=== PATIENT | female | born 1985 | race Caucasian/White ===

== ENCOUNTER 2016-12-01 12:35 | Outpatient (CLI) | payer MEDICAID | END 2016-12-01 13:45 | disposition home or self-care (01) | LOC: 2LDRP 12:35 → BC 12:35 | DX: O99.89 Other specified diseases and conditions complicating pregnancy, childbirth and the puerperium (principal); R10.2 Pelvic and perineal pain; Z3A.41 41 weeks gestation of pregnancy ==